=== PATIENT | male | born 1970 | race Caucasian/White ===

== ENCOUNTER 2017-05-30 13:46 | Emergency (ER) | payer BC ==
[2017-05-30] MEDS ORDERED: Ibuprofen TAB* 600 MG PO ONE (15:14)
--- NOTE | 2017-05-30 15:18 | UC ---
Federico Hatch Alok, scribed for Yamil Ahumada MD on 05/30/17 at 1515 . Back Pain HPI - HPI Summary HPI Summary: 47M presents to the [facility] with left sided sciatic back pain since 2 days ago. Pt states that his pain began while bending over and has been constant since. Pt has tried cold/hot packs. Pt denies weakness or incontinence. Pt states that he has experienced this pain 3 times in the past. Pt has NKDA. - History of Current Complaint Chief Complaint: UCBackPain Stated Complaint: BACK PAIN Time Seen by Provider: 05/30/17 15:00 Hx Obtained From: Patient Onset/Duration: Lasting Days, Still Present Timing: Constant Severity Initially: Moderate Severity Currently: Moderate Pain Intensity: 9 Pain Scale Used: 0-10 Numeric Back Pain: Is Discrete @ - left lower back Aggravating: Nothing Alleviating: Nothing Associated Signs And Symptoms: Negative: Weakness, Bladder Incontinence, Bowel Incontinence - Allergies/Home Medications Allergies/Adverse Reactions: Allergies Allergy/AdvReac Type Severity Reaction Status Date / Time No Known Allergies Allergy Verified 05/26/13 14:41 PMH/Surg Hx/FS Hx/Imm Hx - Surgical History Surgical History: None - Family History Known Family History: Negative: Cardiac Disease, Hypertension, Diabetes - Social History Occupation: Employed Full-time Lives: With Family Alcohol Use: Daily Alcohol Amount: 6 beers Substance Use Type: None Smoking Status (MU): Heavy Every Day Tobacco Smoker Type: Cigarettes Amount Used/How Often: 1 ppd Length of Time of Smoking/Using Tobacco: 30 years Have You Smoked in the Last Year: Yes Household Exposure Type: Cigarettes Review of Systems Constitutional: Negative Gastrointestinal: Negative Genitourinary: Negative Musculoskeletal: Other: - lower back pain All Other Systems Reviewed And Are Negative: Yes Physical Exam Triage Information Reviewed: Yes Appearance: Well-Appearing, No Pain Distress Vital Signs: Initial Vital Signs Temp 98 F 05/30/17 14:09 Pulse 76 05/30/17 14:09 Resp 17 05/30/17 14:09 Pulse Ox 99 05/30/17 14:09 Vital Signs Reviewed: Yes Eyes: Positive: Other: - EOMI, JERRELL ENT: Positive: Normal ENT inspection Neck: Positive: Supple, Nontender Respiratory: Positive: Lungs clear, Normal breath sounds Cardiovascular: Positive: RRR Abdomen Description: Positive: Nontender, Soft Bowel Sounds: Positive: Present Musculoskeletal: Positive: Other: - L3-L4 left sided tenderness to palpation. Minimal tenderness left buttock. Neurological Exam: Normal Neurological: Positive: Alert, Other: - Sensory/Motor intact Psychological: Positive: Other: - affect/mood appropriate Skin: Positive: Other - warm, dry, color reflects adequate perfusion Back Pain Course/Dx - Course Course Of Treatment: Patient medications reviewed this visit. NO NEUROLOGIC DEFICIT. - Differential Dx/Diagnosis Provider Diagnoses: Low back strain with left sciatica Discharge - Discharge Plan Condition: Stable Disposition: HOME Prescriptions: Cyclobenzaprine TAB* [Flexeril 10 MG TAB*] 10 mg PO TID PRN #15 tab MDD 3 PRN Reason: Pain HYDROcodone/ACETAMIN 5-325 MG* [Milton 5-325 TAB*] 1 tab PO Q4H PRN #20 tab MDD 6 PRN Reason: Pain Ibuprofen TAB* [Motrin TAB* 600 MG] 600 mg PO Q6H PRN #30 tab PRN Reason: Pain Referrals: German Leon MD [Primary Care Provider] - The documentation as recorded by the Federico winters Alok accurately reflects the service I personally performed and the decisions made by , Yamil Ahumada MD.
== END 2017-05-30 15:25 | disposition home or self-care (01) ==
LOC: UCEAST 13:46
DX: S39.012A Strain of muscle, fascia and tendon of lower back, initial encounter (principal); X50.0XXA Overexertion from strenuous movement or load, initial encounter; Y93.9 Activity, unspecified; Y92.9 Unspecified place or not applicable; Y99.9 Unspecified external cause status; M54.32 Sciatica, left side; Z72.0 Tobacco use
CPT/HCPCS: 99212; A9270-GY; G0463

== ENCOUNTER 2018-07-18 15:07 | Emergency (ER) | payer BC ==
--- NOTE | 2018-07-18 15:21 | UC ---
Respiratory Complaint HPI - HPI Summary HPI Summary: 48 y/o male presents to the urgent care c/o chest congestion w/productive cough and yellowish phlegm for the past 5 days. Cough is worse at night time and has not been able to sleep well. Sore throat is 4/10. She has taken Nyquil PO to alleviate symptoms. Pt denies fever, SOB, chest pain, abdominal pain, N/V/D. - History of Current Complaint Stated Complaint: CHEST CONGESTION Time Seen by Provider: 07/18/18 15:20 Hx Obtained From: Patient Onset/Duration: Gradual Onset, Lasting Days - 5 days, Still Present, Worse Since - 2 days Timing: Constant Severity Initially: Mild Severity Currently: Moderate Pain Intensity: 4 - sore throat Pain Scale Used: 0-10 Numeric Character: Cough: Productive, Sputum Description: - yellowish Aggravating Factors: Recumbent Position Alleviating Factors: OTC Meds - Nyquill Associated Signs And Symptoms: Positive: URI, Nasal Congestion. Negative: Fever , Chills - Risk Factors Pulmonary Embolism Risk Factors: Negative Cardiac Risk Factors: Negative Pseudomonas Risk Factors: Negative Tuberculosis Risk Factors: Negative - Allergies/Home Medications Allergies/Adverse Reactions: Allergies Allergy/AdvReac Type Severity Reaction Status Date / Time No Known Allergies Allergy Verified 05/26/13 14:41 Home Medications: Home Medications Losartan TAB* [Cozaar TAB*] 07/18/18 [History] PMH/Surg Hx/FS Hx/Imm Hx Previously Healthy: Yes Cardiovascular History: Hypertension - Surgical History Surgical History: None - Family History Known Family History: Positive: Hypertension, Diabetes Negative: Cardiac Disease - Social History Occupation: Employed Full-time Lives: With Family Alcohol Use: Daily Alcohol Amount: 6 beers Substance Use Type: None Smoking Status (MU): Heavy Every Day Tobacco Smoker Type: Cigarettes Amount Used/How Often: 1 ppd Length of Time of Smoking/Using Tobacco: 30 years Have You Smoked in the Last Year: Yes Household Exposure Type: Cigarettes Review of Systems Constitutional: Negative Skin: Negative Eyes: Negative ENT: Sore Throat Respiratory: Cough - productive w/ yellowish phlegm Cardiovascular: Negative Gastrointestinal: Negative Genitourinary: Negative Motor: Negative Neurovascular: Negative Musculoskeletal: Negative Neurological: Negative Psychological: Negative Is Patient Immunocompromised?: No All Other Systems Reviewed And Are Negative: Yes Physical Exam - Summary Physical Exam Summary: Vital Signs Reviewed: Yes General: well developed, well nourished male sitting in the examining table w/o any apparent distress Eyes: Positive: Conjunctiva Clear - PERRLA, EOMI, fundi grossly normal ENT: Positive: Normal ENT inspection, Hearing grossly normal, Pharynx normal, Nasal congestion - edematous and erythematous nasal mucosa, Nasal drainage - yellowish drainage, TMs normal. Negative: Tonsillar swelling, Tonsillar exudate Neck: Positive: Supple, Nontender, No Lymphadenopathy Respiratory: no orthopnea or dyspnea. Able to speak in full sentences, no retractions or accessory muscle use, no tripod position, stridor, or head bobbing. CTA bilaterally, B/L upper lung w/ scattered rhonchi , no wheezes, crackles rales. Cardiovascular: Positive: RRR, No Murmur, Pulses Normal, Brisk Capillary Refill Abdomen Description: Positive: Nontender, No Organomegaly, Soft. Negative: CVA Tenderness (R), CVA Tenderness (L) Bowel Sounds: Positive: Present Musculoskeletal Exam: Normal Musculoskeletal: Positive: Strength Intact, ROM Intact, No Edema Neurological Exam: Normal Psychological Exam: Normal Skin Exam: Normal Triage Information Reviewed: Yes Respiratory Course/Dx - Course Course Of Treatment: 48 y/o male presents to the urgent care c/o chest congestion w/productive cough and yellowish phlegm for the past 5 days. Cough is worse at night time and has not been able to sleep well. Sore throat is 4/ 10. She has taken Nyquil PO to alleviate symptoms. Pt denies fever, SOB, chest pain, abdominal pain, N/V/D. Hx obtained.Pt with Acute bronchitis on examination. Pt Rx Z-connor PO and Albuterol inhaler and Tessalon tabs PO to alleviate bronchospasm and cough. Pt advised to increase fluid intake and eat well. if not improvement or worsening of symptoms to return to the urgent care or f/u with PCP for further management. Pt's BP is elevated today advised to decrease salt in diet, monitor BP and f/u with PCP for further management.Pt understood and agreed with plan of care - Differential Dx/Diagnosis Differential Diagnosis/HQI/PQRI: Bronchitis, Laryngitis, Lower Resp Infection, Sinusitis, Other - pneumonia Provider Diagnoses: 1- Acute bronchitis. 2- cough. 3- Uncontrolled HTN Discharge - Sign-Out/Discharge Documenting (check all that apply): Patient Departure - D/C home All imaging exams completed and their final reports reviewed: No Studies - Discharge Plan Condition: Stable Disposition: HOME Prescriptions: Albuterol HFA INHALER* [Ventolin HFA Inhaler*] 1 - 2 puff INH Q6H PRN #1 mdi PRN Reason: bronchospasm Azithromyxin CONNOR (NF) [Z-Connor (Zithromax) 250 mg tabs #6] 2 tab PO .TODAY, THEN 1 DAILY #6 tab Benzonatate CAP* [Tessalon 100 MG CAP*] 100 mg PO TID PRN #21 cap PRN Reason: Cough Patient Education Materials: Acute Bronchitis (ED), Low-Sodium Diet (ED) Forms: *Work Release Referrals: German Leon MD [Primary Care Provider] - 3 Days Additional Instructions: 1-Please take full course of antibiotic to avoid resistance. 2-Take Tessalon PO tabs as directed and use the albuterol inhaler to alleviate cough. Increase fluid intake, rest and eat well. 3- If symptoms do not improve or worsen or your develop SOB with fever and severe wheezing please go immediately to the ER further evaluation and treatment. 4- F/u with your PCP in 3 days if not improvement of symptoms for further management 5-Your BP is elevated today. please decrease salt in your diet, monitor BP and if it continues to be elevated please f/u with your PCP for further management - Billing Disposition and Condition Condition: STABLE Disposition: Home
[2018-07-18 15:26] VITALS: BP 144/93
== END 2018-07-18 15:51 | disposition home or self-care (01) ==
LOC: UCEAST 15:07
DX: J20.9 Acute bronchitis, unspecified (principal); I10 Essential (primary) hypertension; F17.210 Nicotine dependence, cigarettes, uncomplicated
CPT/HCPCS: 99212; G0463

== ENCOUNTER 2019-11-12 16:11 | Emergency (ER) | payer BC ==
[2019-11-12 16:29] VITALS: BP 157/101
--- NOTE | 2019-11-12 16:57 | UC ---
Complaint Male HPI - HPI Summary HPI Summary: 49-year-old male comes in with a chief complaint of a lesion on his penis. Started about a week ago. Slightly raised area and the base of the dorsum of his penis. Is not tender to palpation is no drainage. He has no burning with urination no urethral discharge. No fevers or chills feels well otherwise. No new partners. The area of concern has increased to 3 adjacent lesions. - History of Current Complaint Chief Complaint: UCSkin Stated Complaint: PERSONAL Time Seen by Provider: 11/12/19 16:27 Pain Intensity: 0 - Allergies/Home Medications Allergies/Adverse Reactions: Allergies Allergy/AdvReac Type Severity Reaction Status Date / Time No Known Allergies Allergy Verified 05/26/13 14:41 Home Medications: Home Medications Multivitamin [Multivitamins] 1 cap PO 11/12/19 [History] PMH/Surg Hx/FS Hx/Imm Hx Previously Healthy: Yes Cardiovascular History: Hypertension - Surgical History Surgical History: None - Family History Known Family History: Positive: None, Hypertension, Diabetes Negative: Cardiac Disease - Social History Alcohol Use: Daily Alcohol Amount: 6 beers Substance Use Type: None Smoking Status (MU): Heavy Every Day Tobacco Smoker Type: Cigarettes Amount Used/How Often: 1 ppd Length of Time of Smoking/Using Tobacco: 30 years Have You Smoked in the Last Year: Yes Household Exposure Type: Cigarettes Review of Systems All Other Systems Reviewed And Are Negative: Yes Constitutional: Positive: Negative Skin: Positive: Other - SEE HPI Eyes: Positive: Negative ENT: Positive: Negative Respiratory: Positive: Negative Cardiovascular: Positive: Negative Gastrointestinal: Positive: Negative Genitourinary: Positive: Negative, Ulceration/Lesion, Other - SEE HPI. Negative : Dysuria, Hematuria, Frequency, Urgency, Vaginal/Penile Burning, Vaginal/ Penile Itching, Vaginal/Penile Discharge, Vaginal/Penile Pain, Vaginal/Penile Tenderness Motor: Positive: Negative Neurovascular: Positive: Negative Musculoskeletal: Positive: Negative Neurological: Positive: Negative Psychological: Positive: Negative Is Patient Immunocompromised?: No Physical Exam Triage Information Reviewed: Yes Appearance: Well-Appearing, No Pain Distress, Well-Nourished Vital Signs: Initial Vital Signs Temp 98.0 F 11/12/19 16:23 Pulse 87 11/12/19 16:23 Resp 16 11/12/19 16:23 BP 157/101 11/12/19 16:23 Pulse Ox 99 01/06/20 16:23 Vital Signs Reviewed: Yes Eye Exam: Normal Eyes: Positive: Conjunctiva Clear Neck: Positive: Supple Respiratory: Positive: No respiratory distress Male Genital Exam: Negative: Urethral Discharge Musculoskeletal: Positive: Strength Intact, ROM Intact Neurological: Positive: Alert Psychological: Positive: Age Appropriate Behavior Skin: Positive: Other - At the base of the proximal penis there is a slightly raised somewhat firm subcutaneous mobile lesion with to immediately adjacent raised areas which are smaller. Nontender to palpation there is no drainage. No ulceration. No obvious alamo. I did obtain a culture of this lesion for HSV. Complaint Male Course/Dx - Course Course Of Treatment: HSV gonorrhea chlamydia and syphilis are all pending. The lesion clinically is more consistent with a blocked bile ducts or folliculitis. We'll treat with Keflex 100 mg by mouth 3 times a day for 10 days.. Patient has a follow-up scheduled with his primary care doctor on 19 November. I recommended that if the lesion did not improve he could consider evaluation by dermatology. Reevaluate sooner if worse or any questions or concerns. - Differential Dx/Diagnosis Provider Diagnosis: Lesion of penis Discharge ED - Sign-Out/Discharge Documenting (check all that apply): Patient Departure All imaging exams completed and their final reports reviewed: No Studies - Discharge Plan Condition: Stable Disposition: HOME Prescriptions: Cephalexin CAP* [Keflex CAP*] 500 mg PO TID #30 cap Referrals: German Leon MD [Primary Care Provider] - Additional Instructions: FOLLOW UP WITH YOUR DOCTOR ON 11/19/19 SCHEDULED. At this time the cause of the lesion on your penis is undetermined. It is possible that it's a folliculitis or a clogged will gland. Test results are pending. At this time going to treat with an antibiotic for possible skin infection. Follow-up with your primary care doctor on November 19, 2019 as scheduled. If all lab results are negative and the lesion does not improve consider seeing a anhydrous ammonia production supervisor. GET REEVALUATED SOONER IF NOT IMPROVED OR WORSE OR ANY QUESTIONS OR CONCERNS. - Billing Disposition and Condition Condition: STABLE Disposition: Home
[2019-11-14 13:12] LABS: Chlamydia trachomatis NAA Negative (Negative); Neisseria gonorrhoeae (GC) NAA Negative (Negative)
[2019-11-14 18:59] LABS: Herpes Source PENIS
== END 2019-11-12 17:14 | disposition home or self-care (01) ==
LOC: UCEAST 16:11
DX: N48.89 Other specified disorders of penis (principal); I10 Essential (primary) hypertension; F17.210 Nicotine dependence, cigarettes, uncomplicated
CPT/HCPCS: 36415; 86780; 87491; 87529; 87591; 99211; G0463